=== PATIENT | male | born 2000 | race Caucasian/White ===

== ENCOUNTER 2025-10-30 07:39 | Emergency (ER) | payer OTHER, SELFPAY ==
[2025-10-30 07:40] VITALS: BP 129/82; PULSE 62; RESP 16; TEMP 36.7; O2SAT 98; BMI 25.7
[2025-10-30 08:33] VITALS: BP 126/83; PULSE 64; RESP 18; O2SAT 99
--- NOTE | 2025-10-30 08:51 | XR_ITS ---
PROCEDURE INFORMATION: Exam: XR Right Shoulder Exam date and time: 10/30/2025 8:50 AM Age: 25 years old Clinical indication: Pain; Shoulder; Right; Additional info: Shoulder pain TECHNIQUE: Imaging protocol: Radiologic exam of the right shoulder. Views: 2 or more views. COMPARISON: No relevant prior studies available. FINDINGS: Bones/joints: The acromioclavicular joint is normal. No visible fracture or dislocation. No calcific tendinitis. Soft tissues: Normal. IMPRESSION: 1. No visible fracture or dislocation. 2. No calcific tendinitis.
--- NOTE | 2025-10-30 08:52 | HMH.EDGENADL ---
Discharge Plan Disposition Patient Disposition: Home, Self-Care Prescriptions Prescriptions: No Action No Known Home Medications Referrals Follow up/Referrals: Dustin Corral DO [Staff Physician, Orthopedics] - See instructions Provider,Referral, [Primary Care Provider, Medical] - See instructions Activity Restrictions/Add. Instructions Additional Instructions/Restrictions: Your symptoms today are most likely secondary to chronic worsening of your shoulder injury that occurred in 2021 likely from the physical nature of the work that you currently do. I suspect you likely have a rotator cuff injury. It is possible also you have cervical radiculopathy in your cervical spine but this is less likely. Therefore I recommend you follow-up with Dr. Corral to discuss further your shoulder and whether or not you need physical therapy and MRIs etc. Return with any significant weakness in your upper extremity redness in your shoulder with fevers or other concerns. Clinical Impressions Clinical Impression: Acute shoulder pain, Arm paresthesia, right Stand Alone Forms Stand Alone Forms: Work/School Release Print Language Print Language: Malaysian Discharge ED Provider: Marely Poole General Adult HPI General Chief complaint: PAIN Stated complaint: pain, numbness right shoulder Time Seen by Provider: 10/30/25 08:37 Mode of Arrival: Ambulatory Source of Information: Patient Description of Symptoms (Recalled from ER Triage Doc. by RN): PT REPORTS RIGHT SHOULDER AND ARM PAIN ABOUT 2100 LAST NIGHT. PT REPORTS PREVIOUS INJURY THAT HEALED WITHOUT SURGERY. NO NEW INJURY. NO NUMBNESS OR WEAKNESS AT THIS TIME History of Present Illness HPI narrative: Patient is a 25-year-old male presenting today with right shoulder pain. States that he had a shoulder [place] in 2021 [place] hospital where it was reduced and he got pain medicine at that time but never had any imaging or specifically an MRI. 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 Over the last 24 to 48 hours felt some paresthesias that he describes as [id number] in his right shoulder as well is significant pain with movement of the right shoulder. Denies any complete loss of sensation or true numbness. Denies any significant neck pain at the moment. Denies any weakness in his upper extremity. Related Data Home Medications ?Medication ?Instructions ?Recorded ?Confirmed No Known Home Medications 10/30/25 10/30/25 Allergies Allergy/AdvReac Type Severity Reaction Status Date / Time No Known Allergies Allergy Verified 10/30/25 07:56 [facility] Disclaimer: The information contained in this section may have been updated after the patient was seen, as this information can be updated by other users. Social History Smoking Status: Current every day smoker alcohol intake: never current occupational status: other Travel in the last 8 weeks?: None ROS Obtained: Yes All systems reviewed & no additional complaints except as documented Physical Exam General General appearance: alert and in no apparent distress Respiratory Respiratory exam: Present normal lung sounds bilaterally Cardiovascular Cardiovascular exam: Present regular rate Extremities Exam Extremities exam: Present other (No midline cervical pain patient has normal internal and external rotation of the shoulder and abduction of the shoulder median ulnar radial and axillary nerve motor and sensory function normal does have significant pain with range of motion however) Neurological Exam Neurological exam: Present alert and oriented X3 Medical Decision Making Medical Records Screening: Per USPSTF and CDC recommendations, given the prevalence of disease in our region, it is our hospital?s policy to screen for HIV and viral Hepatitis for all patients aged 18 and over and those with ongoing risk factors. Shola Inquiry Pt receiving controlled substance: No Vital Signs: 10/30/25 07:40 10/30/25 08:33 Temperature 98.0 F Temperature Source Oral Pulse Rate 64 Pulse Rate [Radial] 62 Respiratory Rate 16 18 Blood Pressure 126/83 Blood Pressure [Left Arm] 129/82 Blood Pressure Mean 106 Blood Pressure Mean [Left Arm] 97 Blood Pressure Source [Left Arm] Automatic Cuff Blood Pressure Position [Left Arm] Sitting 02 Sat by Pulse Oximetry 98 99 Oxygen Delivery Method Room Air Orders (Tests/Meds): ORDERS Category Date Time Status Shoulder XR right miminum 2 views [XR shoulder RT min Exams 10/30/25 08:51 Taken 2V] Stat Medical Decision Narrative: Patient with above history and physical most likely soft tissue injuries associated with the shoulder likely initiated by his injury from 2021 but significantly exacerbated by the nature of his work. Also possibly has cervical radiculopathy given the paresthesias in his arm but he has no significant neck pain at the moment and the majority of his pain seems to be isolated to his shoulder with range of motion. Therefore I believe most likely he has a rotator cuff injury. Plain films of the shoulder will be performed no indication for emergent cervical spine films at the moment. He has no significant weakness on my exam no indication for any emergent MRI. No concern at the moment for a septic joint. If his plain films are unremarkable we will have him follow-up with orthopedic surgery I recommend that he get physical therapy and or an MRI of his shoulder and cervical spine to follow-up on this. Reassessment 914 x-ray performed which I personally interpreted which shows no evidence of any fracture or dislocation patient was discharged in stable condition with advised to follow-up outpatient with Dr. Corral as stated above with return precautions emphasized. Critical Care Critical Care Time Critical Care Time: No
--- NOTE | 2025-10-30 09:00 | PC.NURSE ---
PT TO RADIOLOGY
[2025-10-30 09:18] VITALS: BP 122/77; PULSE 66; RESP 17; TEMP 36.9; O2SAT 99
[2025-10-30] MEDS: IBUPROFEN 800 MG TABLET PO (09:22)
== END 2025-10-30 09:23 | disposition home or self-care (01) ==
PROVIDERS: Emergency Provider Student in an Organized Health Care Education/Training Program
DX: M25.511 Pain in right shoulder (principal); R20.2 Paresthesia of skin
CPT/HCPCS: 73030; 99283